=== PATIENT | female | born 1955 | race Caucasian/White ===

== ENCOUNTER → 2017-05-09 11:13 | Outpatient (CLI) | payer OTHER, SELFPAY ==
[2017-05-09 11:16] LABS: Bacteria 0 SEEN /hpf (None Seen); Mucous, Urine 0 SEEN /hpf (<or=2+); Red Blood Cells-Urine 0 SEEN /hpf (0-5); White Blood Cells 0 SEEN /hpf (0-5)
[2017-05-09 11:27] LABS: Color, Urine Yellow (Yellow); Glucose, Dipstick Normal (Normal); Ketone-Dipstick Negative (Negative); Leukocyte Esterase-Dipstick Negative /ul (Negative); Nitrite-Dipstick Negative (Negative); Occult Blood-Urine Negative /ul (Negative); Protein-Dipstick Negative (Negative); Specific Gravity, Urine 1.015 (1.002-1.030); Urine Bilirubin Dipstick Negative (Negative); Urine Clarity Clear (Clear); Urine Urobilinogen Normal (Normal)
[2017-05-09 11:35] LABS: Squamous Epithelial Cells - UA 0-5 SEEN /hpf (5-10)
== END ==
PROVIDERS: Family Provider Nurse Practitioner Family; PCP Nurse Practitioner Family; Visit Provider Nurse Practitioner Family
DX: R30.0 Dysuria (principal)
CPT/HCPCS: 81001; 87086

== ENCOUNTER 2017-09-20 16:49 | Emergency (ER) | payer OTHER, SELFPAY ==
[2017-09-20 16:50] VITALS: BP 156/83; PULSE 76; RESP 20; TEMP 36.8; O2SAT 96; BMI 22.4
--- NOTE | 2017-09-20 17:06 | ED.DCSUM_ITS ---
- ER Visit Summary Date of Service: 09/20/17 Chief Complaint: Chest pain History of Present Illness: The patient is a 62 F who presents with chest pain that began today. Patient states the pain began a few hours ago. Patient states the pain has gradually gotten worse. Patient describes the pain is tightness and stabbing. Patient states the pain is over the entire chest. Patient states her stabbing pain is over the left scapular area. Patient denies any nausea or vomiting. Patient admits to some diaphoresis and dyspnea. Patient also admits to some acid reflux symptoms. Patient denies any cough or fever. Patient denies any palpitations. Patient denies any lightheadedness or dizziness. Patient has family history of a parent with coronary artery disease. Patient has no other cardiac risk factors. Patient is PERC negative. Physical Examination: Vital signs are stable. Patient is afebrile. Patient is in no acute distress. Oral mucosa is pink moist. Neck is supple. There is no JVD noted. Heart was regular rate and rhythm. Lungs are clear and equal bilateral. There is good respiratory effort noted. Abdomen is soft nontender. Cranial nerves II through XII are intact. There is no focal motor or sensory deficits noted. The remaining physical exam is within normal limits. Test Results: EKG showed normal sinus rhythm with a rate of 71. There are occasional PACs noted. There are no acute ST or T-wave changes. There are no prior EKGs available for comparison. Portable chest x-ray does not show any acute cardiopulmonary process. CBC and basic metabolic profile were within normal limits. Troponin was normal. Emergency Department Course and Treatment: Patient felt better on reevaluation. Patient was given aspirin here. Patient has a SARMAD score of 1 and a HEART score of 3. Patient is low risk for acute coronary event. Patient was instructed to follow-up with her primary care physician in 5-7 days. Patient understood and was agreeable with the plan. All questions were answered. Disposition: Discharged home Impression: Chest pain This note was generated with [employer] dictation software. It may contain incorrect words, spelling, and punctuation that were not noted in review of the chart prior to signing ED Disposition - Plan for ED Patient: Disposition: Home or Assisted Living Chief Complaint: Chest Pain Diagnosis: Chest pain of unknown etiology Instructions: ED Chest Pain Atypical Unkn Cause Referrals: Vitaly Pickard NP-C [Nurse Practitioner] -
[2017-09-20 17:33] VITALS: O2SAT 96
[2017-09-20] MEDS: Aspirin 81 MG TAB.CHEW 324 MG PO (17:34)
[2017-09-20 17:37] LABS: Anion Gap 5 (5-15); BUN 17 mg/dL (7-18); BUN/Creat Ratio 20.1 RATIO (10-20); Calcium,Total 9.6 mg/dL (8.5-10.1); Chloride 107 mmol/L (98-107); Creatinine, Serum 0.85 mg/dL (0.55-1.02); EST Glomerular Filtration Rate 72 mL/min (>60); Est Glom Filt Rate - Afr Amer 87 mL/min (>60); Estimated Creatinine Clearance 55.31 ml/min; Glucose 85 mg/dL (74-106); Sodium Level 140 mmol/L (136-145)
[2017-09-20 17:47] LABS: Absolute Lymphocyte Count 1.78 X10^3/ul (0.83-4.51); Absolute Neutrophil Count 5.1 X10^3/uL (2.0-7.7); Basophil# 0.01 X10^3/uL; Basophil% 0.1 % (0-1); Eosinophil# 0.07 X10^3/uL; Hematocrit 43.9 % (37-47); Hemoglobin 14.7 g/dl (12.0-15.0); Lymphocyte # 1.78 X10^3/ul (4.0); Lymphocyte % 24.4 % (19-41); Mean Corp Hgb Conc 33.5 g/gl (32-36); Mean Corpuscular Hgb 30.9 pg (27.0-32.0); Mean Corpuscular Volume 92.4 fL (81-99); Mean Platelet Vol. 10.4 fl (6.2-12.0); Monocyte# 0.32 X10^3/uL; Monocyte% 4.4 % (0-10); Neutrophil # 5.12 X10^3/uL (2.7-7.7); Platelet Count 221 K/mm3 (150-450); RBC Distribution Width CV 13.1 % (11.6-14.6); RBC Distribution Width SD 44.1 fl (35.1-43.9); Red Blood Count 4.75 M/mm3 (4.2-5.4); White Blood Count 7.3 K/mm3 (4.4-11.0)
[2017-09-20 17:52] LABS: POSITIVE COUNT NO; POSITIVE DIFFERENTIAL NO; POSITIVE MORPHOLOGY NO
== END 2017-09-20 19:00 | disposition home or self-care (01) ==
PROVIDERS: Emergency Provider Emergency Medicine; Family Provider Internal Medicine; PCP Internal Medicine
DX: R07.9 Chest pain, unspecified (principal); I49.1 Atrial premature depolarization; R06.00 Dyspnea, unspecified; K21.9 Gastro-esophageal reflux disease without esophagitis; G62.9 Polyneuropathy, unspecified; M19.90 Unspecified osteoarthritis, unspecified site; Z87.19 Personal history of other diseases of the digestive system; Z90.49 Acquired absence of other specified parts of digestive tract
CPT/HCPCS: 71045; 80048; 84484; 85025; 93005; 99283; A4216

== ENCOUNTER → 2017-11-17 07:55 | Outpatient (CLI) | payer OTHER, SELFPAY ==
--- NOTE | 2017-11-17 08:05 | BI_ITS ---
MAMMOGRAPHY - BILATERAL SCREENING REASON FOR EXAM: Female, 62 years old. Routine annual screening examination. PERTINENT HISTORY: Non-contributory. TECHNIQUE: Digital bilateral breast janelle (3D mammographic acquisition) in the CC and MLO projections. 2-D mediolateral oblique (MLO) and craniocaudad (CC) views of both breasts were obtained. CAD: Full Field Digital Mammography with Computer Added Detection was performed. COMPARISON: Comparison is made with prior examination dated May 18, 2016. FINDINGS: Breast Composition: The breasts are heterogeneously dense, which may obscure small masses. There are no dominant masses or suspicious calcifications. No other significant abnormalities are identified. There has been no significant change since the prior study. BI/SCREENING MAMM (CAD), BILAT IMPRESSION: Stable bilateral screening mammogram. Yearly follow-up mammogram recommended. (A) ASSESSMENT CATEGORY: BIRADS Category 1: Negative. A letter regarding these results will be sent to the patient by the facility within 30 days. Approximately 10% of breast cancers are not detected by mammography. A normal mammogram should not delay biopsy of a clinically suspicious abnormality. [id number] Electronically Signed: Dwight Purvis MD at 13:17 EDT Tel [phone], Service support ,
[2017-11-17 09:19] LABS: Cholesterol 200 mg/dL (200); High Density Lipoprotein 101 mg/dL; Triglycerides 70 mg/dL; Very Low Density Lipoprotein 14 mg/dL (5-40)
== END ==
PROVIDERS: Family Provider Internal Medicine; PCP Internal Medicine; Referring Provider Obstetrics & Gynecology; Visit Provider Obstetrics & Gynecology
DX: Z00.00 Encounter for general adult medical examination without abnormal findings (principal); Z12.31 Encounter for screening mammogram for malignant neoplasm of breast
CPT/HCPCS: 36415; 77063; 77067; 80061

== ENCOUNTER → 2018-03-27 07:30 | Outpatient (CLI) | payer OTHER, SELFPAY ==
[2018-03-20 10:39] VITALS: BMI 21.9
--- NOTE | 2018-03-27 07:34 | US_ITS ---
STUDY: ULTRASOUND OF THE FEMALE PELVIS - COMPLETE REASON FOR EXAM: Female, 62 years old. Left lower quadrant pain. The patient is postmenopausal. LMP: Postmenopausal. TECHNIQUE: Transabdominal and Transvaginal TECHNICAL QUALITY: Adequate. COMPARISON: None. FINDINGS: The uterus is retroverted and is in a midline position. The uterus measures 5.3 cm x 5.5 cm x 3.5 cm. Normal uterine cervix. The endometrium measures 1.1 mm in thickness, and is hyperechoic. There is no demonstrated endometrial mass. There is no demonstrated myometrial mass. I.U.D. - The patient does not have an I.U.D. The right ovary is non-visualized. The left ovary is visualized. The left ovary measures 1.7 cm x 1.4 cm x 1.3 cm. There is no left ovarian cyst or ovarian mass. There is no visualized left adnexal mass or complex lesion. There is normal arterial and normal venous vascularity. There is a trace amount of fluid in the cul-de-sac. The pre void volume of the bladder was 282 mL. Polycystic ovary disease: No. US/Transvaginal Non- IMPRESSION: Normal female pelvis. Electronically Signed: Dwight Purvis MD at 10:49 EST , Service support ,
--- NOTE | 2018-03-27 07:34 | US_ITS ---
STUDY: ULTRASOUND OF THE FEMALE PELVIS - COMPLETE REASON FOR EXAM: Female, 62 years old. Left lower quadrant pain. The patient is postmenopausal. LMP: Postmenopausal. TECHNIQUE: Transabdominal and Transvaginal TECHNICAL QUALITY: Adequate. COMPARISON: None. FINDINGS: The uterus is retroverted and is in a midline position. The uterus measures 5.3 cm x 5.5 cm x 3.5 cm. Normal uterine cervix. The endometrium measures 1.1 mm in thickness, and is hyperechoic. There is no demonstrated endometrial mass. There is no demonstrated myometrial mass. I.U.D. - The patient does not have an I.U.D. The right ovary is non-visualized. The left ovary is visualized. The left ovary measures 1.7 cm x 1.4 cm x 1.3 cm. There is no left ovarian cyst or ovarian mass. There is no visualized left adnexal mass or complex lesion. There is normal arterial and normal venous vascularity. There is a trace amount of fluid in the cul-de-sac. The pre void volume of the bladder was 282 mL. Polycystic ovary disease: No. US/Pelvic (Non ) IMPRESSION: Normal female pelvis. Electronically Signed: Dwight Purvis MD at 10:49 EST , Service support ,
== END ==
PROVIDERS: Family Provider Internal Medicine; PCP Internal Medicine; Referring Provider Nurse Practitioner Women's Health; Visit Provider Nurse Practitioner Women's Health
DX: R10.2 Pelvic and perineal pain (principal)
CPT/HCPCS: 76830; 76856

== ENCOUNTER → 2018-08-01 13:26 | Outpatient (CLI) | payer MEDICARE, BC, SELFPAY ==
[2018-08-01 11:14] VITALS: BMI 22.4
[2018-08-24 11:57] LABS: HPV APTIMA, High Risk Negative (Negative)
== END ==
PROVIDERS: Family Provider Internal Medicine; PCP Internal Medicine; Referring Provider Obstetrics & Gynecology; Visit Provider Obstetrics & Gynecology
DX: Z12.4 Encounter for screening for malignant neoplasm of cervix (principal)
CPT/HCPCS: 87624; 88175; G0145

== ENCOUNTER 2018-08-07 20:59 | Emergency (ER) | payer MEDICARE, BC, SELFPAY ==
[2018-08-01 11:14] VITALS: BMI 22.4
[2018-08-07 21:01] VITALS: BP 127/76; PULSE 62; RESP 18; TEMP 36.7; O2SAT 99; BMI 22.0
[2018-08-07 21:15] LABS: Bacteria 0 SEEN /hpf (None Seen); Mucous, Urine 0 SEEN /hpf (<or=2+); Red Blood Cells-Urine 0 SEEN /hpf (0-5); White Blood Cells 0 SEEN /hpf (0-5)
[2018-08-07 21:30] LABS: Color, Urine Straw (Yellow); Glucose, Dipstick Normal (Normal); Ketone-Dipstick Negative (Negative); Leukocyte Esterase-Dipstick Negative /ul (Negative); Nitrite-Dipstick Negative (Negative); Occult Blood-Urine Negative /ul (Negative); Protein-Dipstick Negative (Negative); Urine Bilirubin Dipstick Negative (Negative); Urine Clarity Clear (Clear); Urine Urobilinogen Normal (Normal)
[2018-08-07 21:35] LABS: Squamous Epithelial Cells - UA 0-5 SEEN /hpf (5-10)
[2018-08-07] MEDS: Ondansetron 4 MG/2 ML Vial IV (23:02)
[2018-08-07] MEDS: Morphine 4 MG/ML Syringe IV (23:02)
[2018-08-07 23:07] LABS: Absolute Lymphocyte Count 1.66 X10^3/ul (0.83-4.51); Absolute Neutrophil Count 2.4 X10^3/uL (2.0-7.7); Basophil# 0.01 X10^3/uL; Basophil% 0.2 % (0-1); Eosinophils% 2.2 % (0-5); Hematocrit 34.8 % (37-47); Hemoglobin 11.4 g/dl (12.0-15.0); Lymphocyte # 1.66 X10^3/ul (4.0); Lymphocyte % 37.1 % (19-41); Mean Corp Hgb Conc 32.8 g/gl (32-36); Mean Corpuscular Volume 91.6 fL (81-99); Mean Platelet Vol. 9.9 fl (6.2-12.0); Monocyte# 0.31 X10^3/uL; Monocyte% 6.9 % (0-10); Neutrophil % 53.6 % (47-70); Platelet Count 204 K/mm3 (150-450); RBC Distribution Width CV 13.1 % (11.6-14.6); RBC Distribution Width SD 43.5 fl (35.1-43.9); White Blood Count 4.5 K/mm3 (4.4-11.0)
[2018-08-07 23:08] LABS: POSITIVE COUNT NO; POSITIVE DIFFERENTIAL NO; POSITIVE MORPHOLOGY NO
[2018-08-07 23:19] LABS: ALB/GLOB Ratio 1.4 RATIO (0.9-2.4); AST(SGOT) 20 U/L (15-37); Alanine Aminotransfer ALT/SGPT 20 U/L (13-56); Albumin, Serum 3.8 g/dL (3.2-5.0); Alkaline Phosphatase 81 U/L (45-117); Anion Gap 5 (5-15); BUN 17 mg/dL (7-18); BUN/Creat Ratio 19.4 RATIO (10-20); Calcium,Total 9.1 mg/dL (8.5-10.1); Chloride 107 mmol/L (98-107); Creatinine, Serum 0.88 mg/dL (0.55-1.02); EST Glomerular Filtration Rate 69 mL/min (>60); Est Glom Filt Rate - Afr Amer 83 mL/min (>60); Estimated Creatinine Clearance 55.04 ml/min; Globulin 2.7 g/dL (2.2-4.2); Glucose 82 mg/dL (74-106); Potassium 4.1 mmol/L (3.5-5.1); Protein, Total 6.5 g/dL (6.4-8.2); Sodium Level 140 mmol/L (136-145)
--- NOTE | 2018-08-07 23:29 | ED.VISSUMM ---
- ER Visit Summary Date of Service: 08/07/18 Chief Complaint: Abdominal pain History of Present Illness: The patient is a 63 F presenting with abdominal pain. She states that this started earlier this afternoon. She complains of right lower quadrant abdominal pain. She has had a decreased appetite today. She has nausea with no vomiting. She denies diarrhea or constipation. Denies urinary complaints. Denies fever. She has a history of peptic ulcers and previous cholecystectomy. Physical Examination: Vitals are stable. Patient is afebrile. Alert no acute distress. HEENT exam is unremarkable. Neck is supple. Lungs are clear and equal bilaterally. Heart is regular rate and rhythm. Abdomen is soft right lower quadrant tenderness with no rebound or guarding Extremities are unremarkable. Skin is warm and dry. Remainder of exam is unremarkable. Emergency Department Course and Treatment: Patient was given morphine, Zofran IV. CBC, CMP unremarkable. Urinalysis unremarkable. Patient continues to have pain and was given Dilaudid, Phenergan IV. CT abdomen pelvis is pending at this time and will be checked out to the oncoming physician. Disposition: pending Impression: Abdominal pain This note was generated with [employer] dictation software. It may contain incorrect words, spelling, and punctuation that were not noted in review of the chart prior to signing ED Disposition - Plan for ED Patient: Referrals: Enmanuel Joseph MD [Primary Care Provider] -
[2018-08-08] MEDS: proMETHazine 25 MG/ML Syringe 6.25 MG IV (00:26)
[2018-08-08] MEDS: HYDROmorphone 0.5 MG/0.5 ML SYRINGE IV (00:26)
[2018-08-08 01:42] VITALS: BP 106/61; PULSE 48; RESP 16; O2SAT 98
--- NOTE | 2018-08-08 02:03 | ED.DEP ---
ED Disposition - Plan for ED Patient: Disposition: Home or Assisted Living Instructions: Treating Constipation Referrals: Enmanuel Joseph MD [Primary Care Provider] - Washington Block MD [STAFF PHYSICIAN] -
[2018-08-08 02:23] VITALS: BP 110/47; PULSE 57; RESP 16; O2SAT 100
--- NOTE | 2018-08-08 22:44 | CT_ITS ---
STUDY: CT ABDOMEN AND PELVIS WITH CONTRAST REASON FOR EXAM: Female, 63 years old. Lower abdominal pain, nausea. History of peptic ulcer and cholecystectomy. RADIATION DOSAGE (If Supplied By Facility): CTDIvol = ( 17.99 ) mGy, DLP = ( 472.45 ) mGycm TECHNIQUE: Transaxial 3.75 mm images were obtained from the dome of the diaphragm to the symphysis pubis with oral contrast. 100ML IV/Oral Isovue 300 was administered. Sagittal and coronal images were reconstructed. Individualized dose optimization techniques were used for this CT. COMPARISON: CT abdomen pelvis 05/05/2014. FINDINGS: The visualized lung bases are unremarkable. The visualized portions of the heart are within normal limits. Stable few millimeter low attenuation in the right hepatic periphery. This is too small to characterize, however is unchanged. Previously seen low attenuation in the hepatic dome has resolved.. Absent gallbladder and normal extrahepatic biliary system patient status postcholecystectomy.. Normal spleen. Normal pancreas. Normal bilateral adrenal glands. Normal right kidney. Stable subcentimeter low-attenuation left inferior renal pole likely small cyst or other benign entity. Normal visualized stomach. Normal small intestine. Large amount of retained fecal material with otherwise normal colon. The appendix is visualized and appears normal. Image [id number] series 2. There is atherosclerotic calcification of the abdominal aorta and pelvic arteries, without a demonstrated aneurysm. Normal inferior vena cava. Normal retroperitoneum. 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 Normal urinary bladder. The uterus is age appropriate. Normal abdominal wall. There are stable degenerative changes of the visualized lumbar spine most pronounced L2-3, lumbar facet joints, mild degenerative changes of the bilateral hip and sacroiliac joints, CT/Abdomen/Pelvis WITH Contrast IMPRESSION: Stable subcentimeter low-attenuation right hepatic lobe and left inferior renal pole since 2014 felt to be benign entity such as cysts or others. There is no appendicitis, colitis, diverticulitis, ascites, abscess, collection, perforation or obstruction. There is no obstructive uropathy, obstructive renal or ureteral calculi. Abundant amount of retained fecal material. Insufficient left ovarian vein with pelvic varices, arteriosclerosis, degenerative changes felt to be nonacute findings. Electronically Signed: Ani Chávez MD at 1:48 EDT , Service support ,
== END 2018-08-08 02:27 | disposition home or self-care (01) ==
PROVIDERS: Emergency Medicine; Emergency Provider Emergency Medicine; Family Provider Internal Medicine; PCP Internal Medicine
DX: K59.00 Constipation, unspecified (principal); R10.31 Right lower quadrant pain; Z90.49 Acquired absence of other specified parts of digestive tract
CPT/HCPCS: 74177; 80053; 81001; 85025; 96374; 96375; 99283; Q9967; A4216; J2405

== ENCOUNTER → 2018-11-19 09:50 | Outpatient (CLI) | payer MEDICARE, BC, SELFPAY ==
[2018-03-20 11:25] VITALS: BMI 22.4
--- NOTE | 2018-11-19 09:52 | BI_ITS ---
MAMMOGRAPHY - BILATERAL SCREENING REASON FOR EXAM: Female, 63 years old. Routine annual screening examination. PERTINENT HISTORY: Non-contributory. TECHNIQUE: Digital bilateral breast darcy (3D mammographic acquisition) in the CC and MLO projections. 2-D mediolateral oblique (MLO) and craniocaudad (CC) views of both breasts were obtained. CAD: Full Field Digital Mammography with Computer Added Detection was performed. COMPARISON: Comparison is made with prior examination dated November 17, 2017. FINDINGS: Breast Composition: The breasts are heterogeneously dense, which may obscure small masses. There are no dominant masses or suspicious calcifications. No other significant abnormalities are identified. There has been no significant change since the prior study. BI/SCREEN MAMM (CAD) W/DARCY BILAT IMPRESSION: Stable bilateral screening mammogram. Yearly follow-up mammogram recommended. (A) ASSESSMENT CATEGORY: BIRADS Category 1: Negative. A letter regarding these results will be sent to the patient by the facility within 30 days. Approximately 10% of breast cancers are not detected by mammography. A normal mammogram should not delay biopsy of a clinically suspicious abnormality. [id number] Electronically Signed: Dwight Purvis, at 11:09 EDT , Service support ,
== END ==
PROVIDERS: Family Provider Internal Medicine; PCP Internal Medicine; Referring Provider Nurse Practitioner Women's Health; Visit Provider Nurse Practitioner Women's Health
DX: Z12.31 Encounter for screening mammogram for malignant neoplasm of breast (principal)
CPT/HCPCS: 77063; 77067

== ENCOUNTER → 2019-03-15 | Outpatient (CLI) | payer MEDICARE, BC, SELFPAY ==
[2019-03-15 14:38] VITALS: BMI 22.0
== END | disposition home or self-care (01) ==
LOC: LABSPEC 16:43
PROVIDERS: PCP Internal Medicine; Referring Provider Obstetrics & Gynecology; Visit Provider Obstetrics & Gynecology
DX: N89.8 Other specified noninflammatory disorders of vagina (principal)
CPT/HCPCS: 87070; 87205

== ENCOUNTER → 2019-11-21 10:26 | Outpatient (CLI) | payer MEDICARE, BC, SELFPAY ==
[2019-08-02 14:59] VITALS: BMI 22.0
--- NOTE | 2019-11-21 10:27 | BI_ITS ---
MAMMOGRAPHY - BILATERAL SCREENING REASON FOR EXAM: Female, 64 years old. Routine annual screening examination. PERTINENT HISTORY: Non-contributory. TECHNIQUE: Digital bilateral breast darcy (3D mammographic acquisition) in the CC and MLO projections. 2-D mediolateral oblique (MLO) and craniocaudad (CC) views of both breasts were obtained. CAD: Full Field Digital Mammography with Computer Added Detection was performed. COMPARISON: Comparison is made with prior study dated 11/19/2018 and 11/17/2017. FINDINGS: Breast Composition: The breasts are heterogeneously dense, which may obscure small masses. There are no dominant masses or suspicious calcifications. No other significant abnormalities are identified. There has been no significant change since the prior study. BI/SCREEN MAMM (CAD) W/DARCY BILAT IMPRESSION: Stable bilateral screening mammogram. Yearly follow-up mammogram recommended. (A) ASSESSMENT CATEGORY: BIRADS Category 1: Negative. A letter regarding these results will be sent to the patient by the facility within 30 days. Approximately 10% of breast cancers are not detected by mammography. A normal mammogram should not delay biopsy of a clinically suspicious abnormality. [id number] Electronically Signed: Dwight Purvis, at 12:39 EDT , Service support ,
--- NOTE | 2019-11-21 10:30 | BD_ITS ---
STUDY: DUAL ENERGY X-RAY ABSORPTIOMETRY / DXA REASON FOR EXAM: Female, 64 years old. Age of sonia 51. Pat is 127.7# and 63 and quot; a loss of 1 and quot; per pat. Currently is on a Hormone patch. Takes 500mg of calcium. Does a little exercising. TECHNIQUE: Bone Mineral Density (BMD) measurements of lumbar spine and bilateral hips were obtained. COMPARISON: None. FINDINGS: Lumbar Spine (L1-L4): g/cm2 (1.019) / T-score (-1.3) / Z-score (0.3) Findings are suggestive of osteopenia with a low fracture risk. Left Femur Total: g/cm2 (0.748) / T-score (-2.1) / Z-score (-0.8) Left Femoral Neck: g/cm2 (0.766) / T-score (-2.0) / Z-score (-0.4) Right Femur Total: g/cm2 (0.785) / T-score (-1.8) / Z-score (-0.5) Right Femoral Neck: g/cm2 (0.875) / T-score (-1.2) / Z-score (0.3) BD/Dexa Bone Density Study IMPRESSION: The patient is considered osteopenic as outlined below according to World Bert Organization (WHO) criteria with a moderate fracture risk. Reference Information: The T-score is the number of standard deviations above or below the standard which is normal for young adults at their peak bone mineral density. The World Health Organization (WHO) interprets the T-scores as follows: Above -1 Normal bone density Between -1 and -2.5 Osteopenia Equal to / or below -2.5 Osteoporosis As a practical clinical guideline, osteopenia may be graded as follows: Mild -1 through -1.5 Moderate -1.6 through -2.0 Severe -2.1 through -2.4 The Z-score is the number of standard deviations above or below age-matched controls. A Z-score of less than -1.5 would be considered abnormal. References: 1. NIH Osteoporosis and Related Bone Diseases www osteo.org 2. International Society for Clinical Densitometry www iscd.org 3. National Osteoporosis Foundation www nof.org Electronically Signed: Dwight Purvis, at 11:09 EDT , Service support ,
== END ==
PROVIDERS: PCP Internal Medicine; Referring Provider Obstetrics & Gynecology; Visit Provider Obstetrics & Gynecology
DX: E28.39 Other primary ovarian failure (principal); Z12.31 Encounter for screening mammogram for malignant neoplasm of breast
CPT/HCPCS: 77063; 77067; 77080

== ENCOUNTER → 2020-08-03 08:53 | Outpatient (CLI) | payer MEDICARE, BC, SELFPAY ==
[2020-08-03 08:29] VITALS: BMI 22.0
[2020-08-03 10:03] LABS: ALB/GLOB Ratio 1.3 RATIO (0.9-2.4); AST(SGOT) 24 U/L (15-37); Alanine Aminotransfer ALT/SGPT 19 U/L (13-56); Albumin, Serum 3.9 g/dL (3.2-5.0); Alkaline Phosphatase 88 U/L (45-117); Anion Gap 6 (5-15); BUN 20 mg/dL (7-18); BUN/Creat Ratio 24.9 RATIO (10-20); Calcium,Total 9.1 mg/dL (8.5-10.1); Chloride 107 mmol/L (98-107); Cholesterol 222 mg/dL (200); EST Glomerular Filtration Rate 76 mL/min (>60); Est Glom Filt Rate - Afr Amer 91 mL/min (>60); Globulin 3.1 g/dL (2.2-4.2); Glucose 80 mg/dL (74-106); High Density Lipoprotein 95 mg/dL; Potassium 4.2 mmol/L (3.5-5.1); Sodium Level 141 mmol/L (136-145); Thyroid Stim Hormone (TSH) 1.67 uIU/mL (0.358-3.74); Triglycerides 81 mg/dL; Very Low Density Lipoprotein 16 mg/dL (5-40)
[2020-08-03 11:36] LABS: Vitamin D,25 Hydroxy 24.8 ng/mL
[2020-08-03 17:13] LABS: Xtra Tube EP Lab EXTRA TUBE
== END ==
PROVIDERS: PCP Internal Medicine; Referring Provider Obstetrics & Gynecology; Visit Provider Obstetrics & Gynecology
DX: N95.1 Menopausal and female climacteric states (principal); Z13.29 Encounter for screening for other suspected endocrine disorder; Z13.220 Encounter for screening for lipoid disorders
CPT/HCPCS: 36415; 80053; 80061; 82306; 84443

== ENCOUNTER → 2020-11-23 08:36 | Outpatient (CLI) | payer MEDICARE, BC, SELFPAY ==
[2019-08-02 14:59] VITALS: BMI 22.0
--- NOTE | 2020-11-23 08:38 | BI_ITS ---
MAMMOGRAPHY - BILATERAL SCREENING REASON FOR EXAM: Female, 65 years old. Routine annual screening examination. PERTINENT HISTORY: Non-contributory. TECHNIQUE: Digital bilateral breast darcy (3D mammographic acquisition) in the CC and MLO projections. 2-D mediolateral oblique (MLO) and craniocaudad (CC) views of both breasts were obtained. CAD: Full Field Digital Mammography with Computer Added Detection was performed. COMPARISON: Comparison is made with prior study 11/21/2019 and 11/19/2018. FINDINGS: Breast Composition: The breasts are heterogeneously dense, which may obscure small masses. There are no dominant masses or suspicious calcifications. No other significant abnormalities are identified. There has been no significant change since the prior study. BI/SCRN MAMM (CAD)W/DARCY BILAT IMPRESSION: Stable bilateral screening mammogram. Yearly follow-up mammogram recommended. (A) ASSESSMENT CATEGORY: BIRADS Category 1: Negative. A letter regarding these results will be sent to the patient by the facility within 30 days. Approximately 10% of breast cancers are not detected by mammography. A normal mammogram should not delay biopsy of a clinically suspicious abnormality. [id number] Electronically Signed: Dwight Purvis MD at 9:24 EDT , Service support ,
== END ==
PROVIDERS: PCP Internal Medicine; Referring Provider Obstetrics & Gynecology; Visit Provider Obstetrics & Gynecology
DX: Z12.31 Encounter for screening mammogram for malignant neoplasm of breast (principal)
CPT/HCPCS: 77063; 77067

== ENCOUNTER → 2020-12-08 | Outpatient (CLI) | payer MEDICARE, BC, SELFPAY | END | disposition home or self-care (01) | LOC: LABSPEC 12:16 | PROVIDERS: PCP Internal Medicine; Referring Provider Nurse Practitioner Women's Health; Visit Provider Nurse Practitioner Women's Health | DX: N76.0 Acute vaginitis (principal) | CPT/HCPCS: 87070; 87077; 87205 ==

== ENCOUNTER 2021-08-08 17:43 | Emergency (ER) | payer MEDICARE, BC, SELFPAY ==
[2021-08-08 17:44] VITALS: PULSE 83; RESP 16; TEMP 36.4; O2SAT 100; BMI 22.4
--- NOTE | 2021-08-08 18:08 | EKG12_ITS ---
Test Reason : SOB Blood Pressure : / mmHG Vent. Rate : 083 BPM Atrial Rate : 090 BPM P-R Int : 000 ms QRS Dur : 060 ms QT Int : 400 ms P-R-T Axes : 000 003 066 degrees QTc Int : 470 ms Poor data quality, interpretation may be adversely affected Atrial fibrillation Septal infarct , age undetermined, cannot be excluded Abnormal ECG Confirmed by ZACKARY MONTERROSO, JEANNINE ([id number]), offline editor [place] ([id number]) on 08/10/2021 9:51:52 AM Referred By: SAMEER Confirmed By:JEANNINE RAYMUNDO MD
[2021-08-08] MEDS: proMETHazine 25 MG/ML Syringe 12.5 MG IM (18:11)
[2021-08-08] MEDS: 0.9% Normal Saline 1,000 ML 1000 ML IV (18:11)
--- NOTE | 2021-08-08 18:12 | EDS_ITS ---
HPI History of Present Illness Chief Complaint: ETOH Intox Informant: patient and friend Narrative Narrative: History is severely limited. Patient states help me over and over again. She will answer that she has no medical problems. But I cannot get any details on why she needs help. I cannot get her to answer if she is having pain or trouble breathing. I cannot get her to give any specific answer. She evidently went out tubing on the water today with friends. Friends are here. They states she was normal this morning. She has not eaten all day. She has been out in the sun. She has had a least a couple glasses of wine but they are not sure how much. She evidently fell asleep on the tube. She has vomited. She is stating help me. They do not know what is wrong with the patient. They could not get any information out of her either. We are not able to get any useful review of systems other than as above. I did scan over the online chart and we will try to look at more. There is a history of anxiety episodes. There is history of what sounds like recurrent of pain of uncertain etiology. There is a note about prior vomiting with syncope. But she has not had visits in quite some time. [facility] Medical History (Updated 08/08/21 @ 19:[address] Keon Yanez MD) Anxiety Arthritis Neuropathy Home Medications calcium citrate 315 mg calcium-vitamin D3 6.25 mcg (250 unit) tablet (Citracal + Vitamin D Maximum) 1 tab PO DAILY 08/03/20 [History Last Taken Unknown] estradiol 0.045 mg-levonorgestrel 0.015 mg/24hr weekly transderm patch 1 patch transdermal QWEEK #12 ea 08/03/20 [Rx Last Taken Unknown] Allergy/AdvReac Type Severity Reaction Status Date / Time codeine AdvReac Nausea Verified 08/08/21 17:46 Family History Father Heart disease Hypertension Hyperlipemia Arthritis Mother Hypertension Thyroid disorder Dementia Brother Alcoholism Grandmother Colon cancer Surgical History History of cholecystectomy History of tonsillectomy Social History Smoking Status: Never smoker alcohol intake: current alcohol intake frequency: holidays/special occasions only Alcohol type: wine details: social substance use type: does not use caffeine: Yes what type of physical activity do you participate in: walking and running frequency: 3-4 times per week seatbelt use: always do you feel safe at home: Yes additional social history: - Remax ROS ROS ED ROS Narrative Unable to obtain any significant review of systems. Review of Systems ROS Unobtainable: due to mental status Gastrointestinal Gastrointestinal: Reports vomiting EXAM Physical Exam Const Vital Signs: 08/08/21 17:44 08/08/21 18:35 08/08/21 19:52 Temperature 97.5 F L Temperature Source Temporal Pulse Rate 83 77 68 Respiratory Rate 16 16 13 Blood Pressure 79/62 L 115/83 H Blood Pressure Mean 67 93 Blood Pressure Source Monitor Pulse Ox 100 99 Oxygen Delivery Method Room Air 08/08/21 21:49 08/08/21 23:06 Temperature Temperature Source Pulse Rate 102 H 69 Respiratory Rate 15 17 Blood Pressure 133/68 H 115/79 Blood Pressure Mean 89 91 Blood Pressure Source Pulse Ox 98 97 Oxygen Delivery Method Room Air Room Air Positive well nourished and well developed Constitutional Narrative: Patient is quiet and resting when I walk in the room. Her friends asked her to explain what is wrong to me. She then opens her eyes and states help me over and over. I try to ask her specific questions. She does answer that she has no medical problems and is on no regular meds. But she cannot tell me where she is. I cannot get any specific response about pain shortness of breath etc. General Appearance ED: well developed; Negative for pallor HEENT Reports moist mucous membranes Eyes PERRL and EOMs intact bilaterally Eyes Narrative: I open the patient's eyes. She has pupils about 2-1/2 to 3 mm. They do appear to be equal and reactive. No notable photophobia. Neck supple Neck Narrative: No meningismus. Chest Wall inspection of chest normal Resp normal respiratory effort and clear to auscultation bilaterally Resp Narrative: Lungs are clear. She has vomited but I hear no coarse breath sounds. Her saturations are 99% on room air showing no hypoxia. Cardio regular rate and regular rhythm GI normal to inspection, nondistended, normoactive bowel sounds, non-tender and non-distended GI Narrative: There is signs of nonbloody emesis on her clothing. But abdomen is overall benign. I feel no mass. I feel no pulsatile mass. I hear no bruit. No tenderness at all. Back/Spine no CVA tenderness Extremity normal to inspection Extremity Narrative: No contusions. No pallor. No mottling. She has great distal pulses in all 4 extremities that are equal. Neuro Neuro Narrative: She is awake alert to person. I cannot get her to answer other questions r egarding orientation. Sensorium / Orientation: alert Psych Psych Narrative: Bit anxious and agitated when awoken. Attitude: agitated Mood & Affect: anxious Skin no rashes or lesions noted Skin Narrative: Patient does have some vomitus on her. No blood. General Skin Exam: Negative for jaundice or pallor MDM MDM MDM Narrative Medical decision making narrative: When I am initially in the room, the patient starts to vomit. Her heart got bradycardic and she actually went asystole for a brief time. She was rolled on her side. Right before we started CPR her pulse came back. She went to 90 and then briefly up to about 130. She went back to a heart rate of 90. It did appear to be sinus. She started vomiting again and she started to get bradycardic but it is come back. Each time she vomits she seems to get significant bradycardia. We will give her some Phenergan. I would like to avoid Zofran for potential QT prolongation. We will pursue blood work. We will check alcohol but is not clear that this is the cause of everything. She may have a component of dehydration and heatstroke. I get no indication of vascular emergency such as poor pulses mottling. With great peripheral including radial pulses I think she has good arterial pressure. No pulsatile mass. History consistent with vascular problems. I cannot get any indication of pain from her. We may need to add further studies depending on her progress. Our evaluation is severely limited due to the lack of history at this time. 18:25 patient was able to tell nursing staff where her daughter was and how to contact her. They were able to contact her. Evidently this patient has a history of passing out when she vomits. My understanding is the daughter is coming in. 18:40 patient evidently is having some more nausea and starting to vomit and CAT scan. Since we have an EKG with a QTC of 470 we will try Zofran now as Phenergan has not been effective. 19: 20 I talked with the patient and her daughter. Her daughter remembers episodes of mom passing out with vomiting back to tati high. This is been a recurrent issue she said. The patient is now awake and alert. She states she does not feel perfect but she feels markedly better now. She just felt terrible before. She denies any pain or trouble breathing. She is awake alert appropriate oriented x3 now. She is a completely different person than I met originally. Her heart rate is about 75 with a normal sinus rhythm very consistent heart rate and her blood pressure is normal. She does not appear to be in atrial fibrillation at this time. Her CBC so far shows no marked abn ormalities. Alcohol was a bit elevated at 139. We are pending further work-up. As long as the patient continues to do well and has no marked abnormalities we may still be able to get her home. The history is most consistent with a combination of alcohol, heat, no p.o. intake of food and her problems with vomiting and syncope. Patient's been rechecked several times here. She feels normal now. She states she has had this problem of nausea vomiting and syncope for years. It did get better when she had her gallbladder out several years ago. But she feels totally asymptomatic now. Her only medication that she takes is actually an estradiol patch. She takes no oral meds. She does take multivitamins vitamin D and calcium. She would prefer to follow-up with her primary physician. She has been in normal sinus rhythm with normal blood pressure and saturations for hours. We will get her up and walk around make sure she still feels well I did repeat her blood work electrolytes markedly normalized. Troponin is still normal. Lactate came down markedly. Is not completely normal but it is marked improvement. Patient is also asymptomatic. We discussed reasons to return. Patient had significant hyperventilation I think this caused marked changes in carbon dioxide lactate and her phosphorus. I think a lot of her symptoms are due to the combination of no food, decreased fluids other than alcohol, and heat. Lab Data Labs: Laboratory Results - last 24 hr 08/08/21 08/08/21 08/08/21 18:10 18:10 18:10 WBC 6.4 RBC 4.52 Hgb 14.5 Hct 42.1 MCV 93.1 MCH 32.1 H MCHC 34.4 RDW Std Deviation 42.1 RDW Coeff of Rekha 12.2 Plt Count 217 MPV 10.8 Immature Gran % (Auto) 0.300 Neut % (Auto) 70.9 H Lymph % (Auto) 22.6 Tyrrell % (Auto) 5.4 Eos % (Auto) 0.5 Baso % (Auto) 0.3 Absolute Neuts (auto) 4.6 Absolute Lymphs (auto) 1.45 Nucleated RBC % 0 Sodium 140 Potassium 3.5 Chloride 108 H Carbon Dioxide 17.0 L Anion Gap 15 BUN 22 H Creatinine 0.88 Estim Creat Clear Calc 55.06 Est GFR (MDRD) Af Amer 83 Est GFR (MDRD) Non-Af 68 BUN/Creatinine Ratio 25.1 H Glucose 131 H Lactic Acid Calcium 9.9 Phosphorus 0.7 L* Magnesium 1.9 Total Bilirubin 0.50 AST 28 ALT 24 Alkaline Phosphatase 79 Troponin I High Sens < 3 L Total Protein 7.1 Albumin 4.1 Globulin 3.0 Albumin/Globulin Ratio 1.4 Lipase 111 Urine Color Urine Clarity Urine pH Ur Specific [place] Urine Protein Urine Glucose (UA) Urine Ketones Urine Occult Blood Urine Nitrite Urine Bilirubin Urine Urobilinogen Ur Leukocyte Esterase Urine RBC Urine WBC Ur Squamous Epith Cells Urine Bacteria Hyaline Casts Urine Mucus Urine Opiates Screen Urine Methadone Screen Ur Barbiturates Screen Ur Phencyclidine Scrn Ur Amphetamines Screen MDMA (Ecstasy) Screen U Benzodiazepines Scrn Urine Cocaine Screen U Cannabinoids Screen Ur Drug Screen Comment Ethyl Alcohol 139.0 08/08/21 08/08/21 08/08/21 18:10 19:00 19:00 WBC RBC Hgb Hct MCV MCH MCHC RDW Std Deviation RDW Coeff of Rekha Plt Count MPV Immature Gran % (Auto) Neut % (Auto) Lymph % (Auto) Tyrrell % (Auto) Eos % (Auto) Baso % (Auto) Absolute Neuts (auto) Absolute Lymphs (auto) Nucleated RBC % Sodium Potassium Chloride Carbon Dioxide Anion Gap BUN Creatinine Estim Creat Clear Calc Est GFR (MDRD) Af Amer Est GFR (MDRD) Non-Af BUN/Creatinine Ratio Glucose Lactic Acid 6.4 H* Calcium Phosphorus Magnesium Total Bilirubin AST ALT Alkaline Phosphatase Troponin I High Sens Total Protein Albumin Globulin Albumin/Globulin Ratio Lipase Urine Color Yellow Urine Clarity Clear Urine pH 5.0 Ur Specific [place] 1.025 Urine Protein Negative Urine Glucose (UA) Normal Urine Ketones 50 H Urine Occult Blood Negative Urine Nitrite Negative Urine Bilirubin Negative Urine Urobilinogen Normal Ur Leukocyte Esterase 25 H Urine RBC 0 SEEN Urine WBC 0-5 SEEN Ur Squamous Epith Cells 0-5 SEEN Urine Bacteria 1+ Hyaline Casts 5-10 SEEN Urine Mucus 3+ Urine Opiates Screen NEGATIVE Urine Methadone Screen NEGATIVE Ur Barbiturates Screen NEGATIVE Ur Phencyclidine Scrn NEGATIVE Ur Amphetamines Screen NEGATIVE MDMA (Ecstasy) Screen NEGATIVE U Benzodiazepines Scrn NEGATIVE Urine Cocaine Screen NEGATIVE U Cannabinoids Screen NEGATIVE Ur Drug Screen Comment Ethyl Alcohol 08/08/21 08/08/21 21:30 23:03 WBC RBC Hgb Hct MCV MCH MCHC RDW Std Deviation RDW Coeff of Rekha Plt Count MPV Immature Gran % (Auto) Neut % (Auto) Lymph % (Auto) Tyrrell % (Auto) Eos % (Auto) Baso % (Auto) Absolute Neuts (auto) Absolute Lymphs (auto) Nucleated RBC % Sodium 141 Potassium 4.4 Chloride 109 H Carbon Dioxide 25.0 Anion Gap 7 BUN 18 Creatinine 0.69 Estim Creat Clear Calc 48.45 Est GFR (MDRD) Af Amer 108 Est GFR (MDRD) Non-Af 89 BUN/Creatinine Ratio 26.0 H Glucose 94 Lactic Acid 2.5 H* Calcium 8.8 Phosphorus 3.5 Magnesium 1.9 Total Bilirubin AST ALT Alkaline Phosphatase Troponin I High Sens 8 Total Protein Albumin Globulin Albumin/Globulin Ratio Lipase Urine Color Urine Clarity Urine pH Ur Specific [place] Urine Protein Urine Glucose (UA) Urine Ketones Urine Occult Blood Urine Nitrite Urine Bilirubin Urine Urobilinogen Ur Leukocyte Esterase Urine RBC Urine WBC Ur Squamous Epith Cells Urine Bacteria Hyaline Casts Urine Mucus Urine Opiates Screen Urine Methadone Screen Ur Barbiturates Screen Ur Phencyclidine Scrn Ur Amphetamines Screen MDMA (Ecstasy) Screen U Benzodiazepines Scrn Urine Cocaine Screen U Cannabinoids Screen Ur Drug Screen Comment Ethyl Alcohol Radiography Diagnostic Testing: Clinical Impression(s) from Imaging Studies Brain CT 08/08/21 18:45 IMPRESSION: No acute intracranial process. Electronically Signed: Jake Burleson MD at 19:34 EDT , Chest X-Ray 08/08/21 18:45 IMPRESSION: No active pulmonary disease. Electronically Signed: Jake Burleson MD at 19:37 EDT , EKG Initial EKG: Comments: EKG is done to evaluate dysrhythmia and read by me. Very difficult to interpret due to motion artifact. EKG shows difficult to assess rhythm but she may have background atrial fibrillation. Overall rate is controlled at 83 though. There is a lot of baseline variation but no definitive indication of ST elevation or depression. There are ST changes in some leads but they are not consistent throughout each beat in those leads. QRS duration i s normal. QTc is within normal at 470. The EKG has a lot of similarities to 20 September 2017 but today's EKG is very hard to interpret due to motion artifact. Discharge Plan Triage Chief Complaint: ETOH Intox ED Provider: Keon Yanez Dx/Rx/DC Orders Clinical Impression: Vasovagal syncope, Alcohol intoxication, Nausea & vomiting Instructions: Nausea Vomit Control, ED Fainting, Vagal Reaction Prescriptions: No Action calcium citrate-vitamin D3 [Citracal + D Maximum] 315 mg-6.25 mcg (250 unit) tablet 1 tab PO DAILY estradiol-levonorgestrel 0.045-0.015 mg/24 hr patch weekly 1 patch Transdermal QWEEK Qty: 12 4RF Primary Care Provider: Enmanuel Joseph Referrals: Enmanuel Joseph MD [Primary Care Provider] - 3-5 Days Disposition Disposition: Home, Self Care
[2021-08-08 18:35] VITALS: BP 79/62; PULSE 77; RESP 16; O2SAT 99
--- NOTE | 2021-08-08 18:45 | RAD_ITS ---
STUDY: X-RAY CHEST REASON FOR EXAM: Female, 66 years old. Cough TECHNIQUE: Single AP portable view of the chest. COMPARISON: 09/20/2017. FINDINGS: The lungs are clear and expanded. There is no demonstrated pleural abnormality. Normal size heart. Normal mediastinum and dominic. Normal visualized pulmonary arteries. Normal visualized aortic arch and descending thoracic aorta. Normal visualized thoracic spine. Normal visualized ribs, clavicles, and shoulders. There is no demonstrated abnormality of the visualized soft tissue structures of the upper abdomen. RAD/Chest 1 View (Portable) IMPRESSION: No active pulmonary disease. Electronically Signed: Jake Burleson MD at 19:37 EDT ,
--- NOTE | 2021-08-08 18:45 | CT_ITS ---
STUDY: CT BRAIN WITHOUT CONTRAST REASON FOR EXAM: Female, 66 years old. Confusion RADIATION DOSAGE (If Supplied By Facility): CTDIvol = ( 47.06 ) mGy, DLP = ( 943.26 ) mGycm TECHNIQUE: Transaxial CT imaging of the brain was performed without administration of intravenous contrast material. Individualized dose optimization techniques were used for this CT. COMPARISON: No relevant priors. FINDINGS: Normal soft tissue structures. Normal calvarium. Normal size ventricles and extra-axial spaces for the patient''s age. Normal white matter tracts of the cerebral hemispheres. Hypodense area in the inferior right basal ganglia probably due to prominent vascular space. Normal brainstem. Normal cerebellum. There is no intracranial hemorrhage. There are no findings of an acute ischemic infarction. Normal visualized paranasal sinuses. CT/Brain/Head without Contrast IMPRESSION: No acute intracranial process. Electronically Signed: Jake Burleson MD at 19:34 EDT ,
[2021-08-08] MEDS: Ondansetron 4 MG/2 ML Vial IV (18:48)
[2021-08-08 19:09] LABS: Absolute Lymphocyte Count 1.45 X10^3/uL (0.83-4.51); Absolute Neutrophil Count 4.6 X10^3/uL (2.0-7.7); Basophil# 0.02 X10^3/uL; Basophil% 0.3 % (0-1); Eosinophil# 0.03 X10^3/uL; Eosinophils% 0.5 % (0-5); Hematocrit 42.1 % (37-47); Hemoglobin 14.5 g/dL (12.0-15.0); Lymphocyte # 1.45 X10^3/ul (0.83-4.51); Lymphocyte % 22.6 % (19-41); Mean Corp Hgb Conc 34.4 g/dL (32-36); Mean Corpuscular Hgb 32.1 pg (27.0-32.0); Mean Corpuscular Volume 93.1 fL (81-99); Mean Platelet Vol. 10.8 fl (6.2-12.0); Monocyte# 0.35 X10^3/uL; Monocyte% 5.4 % (0-10); NRBC Flagged by Analyzer 0 % (0-5); Neutrophil # 4.56 X10^3/uL (2.7-7.7); Neutrophil % 70.9 % (47-70); Platelet Count 217 K/mm3 (150-450); RBC Distribution Width CV 12.2 % (11.6-14.6); RBC Distribution Width SD 42.1 fl (35.1-43.9); Red Blood Count 4.52 M/mm3 (4.2-5.4); White Blood Count 6.4 K/mm3 (4.4-11.0)
[2021-08-08 19:12] LABS: Red Blood Cells-Urine 0 SEEN /hpf (0-5)
[2021-08-08 19:17] LABS: Color, Urine Yellow (Yellow); Glucose, Dipstick Normal (Normal); Ketone-Dipstick 50 mg/dl (Negative); Leukocyte Esterase-Dipstick 25 /ul (Negative); Nitrite-Dipstick Negative (Negative); Occult Blood-Urine Negative /ul (Negative); Protein-Dipstick Negative (Negative); Specific Gravity, Urine 1.025 (1.002-1.030); Urine Bilirubin Dipstick Negative (Negative); Urine Clarity Clear (Clear); Urine Urobilinogen Normal (Normal)
[2021-08-08 19:43] LABS: Amphetamine Urine VISTA NEGATIVE (<1000 ng/mL); Barbiturate Urine VISTA NEGATIVE (< 200 ng/mL); Benzodiazepine Urine VISTA NEGATIVE (< 200 ng/mL); Cocaine Urine VISTA NEGATIVE (< 300 ng/mL); Ecstacy Urine VISTA NEGATIVE (< 500 ng/mL); Methadone Urine VISTA NEGATIVE (< 300 ng/mL); PCP Urine VISTA NEGATIVE (< 25 ng/mL); THC Urine VISTA NEGATIVE (< 50 ng/mL); Vista UDS pH Range 5
[2021-08-08 19:44] LABS: ALB/GLOB Ratio 1.4 RATIO (0.9-2.4); AST(SGOT) 28 U/L (15-37); Alanine Aminotransfer ALT/SGPT 24 U/L (13-56); Albumin, Serum 4.1 g/dL (3.2-5.0); Alkaline Phosphatase 79 U/L (45-117); Anion Gap 15 (5-15); BUN 22 mg/dL (7-18); BUN/Creat Ratio 25.1 RATIO (10-20); Calcium,Total 9.9 mg/dL (8.5-10.1); Chloride 108 mmol/L (98-107); Creatinine, Serum 0.88 mg/dL (0.55-1.02); EST Glomerular Filtration Rate 68 mL/min (>60); Est Glom Filt Rate - Afr Amer 83 mL/min (>60); Estimated Creatinine Clearance 55.06 ml/min; Glucose 131 mg/dL (74-106); Lipase 111 U/L (73-393); Magnesium 1.9 mg/dL (1.6-2.6); Phosphorus 0.7 mg/dL (2.5-4.9); Potassium 3.5 mmol/L (3.5-5.1); Protein, Total 7.1 g/dL (6.4-8.2); Sodium Level 140 mmol/L (136-145); Troponin-I HS < 3 pg/mL (3.0-54.0)
[2021-08-08 19:52] VITALS: BP 115/83; PULSE 68; RESP 13
[2021-08-08 19:54] LABS: Bacteria 1+ /hpf (None Seen); Mucous, Urine 3+ /hpf (<or=2+); Squamous Epithelial Cells - UA 0-5 SEEN /hpf (5-10); White Blood Cells 0-5 SEEN /hpf (0-5)
[2021-08-08 19:56] LABS: Hyaline Cast 5-10 SEEN /lpf (0-5)
[2021-08-08 20:07] LABS: Lactic Acid 6.4 mmol/L (0.4-1.9)
[2021-08-08] MEDS: 0.9% Normal Saline 1,000 ML 999 ML IV (20:56)
[2021-08-08 21:49] VITALS: BP 133/68; PULSE 102; RESP 15; O2SAT 98
[2021-08-08 22:06] LABS: Anion Gap 7 (5-15); BUN 18 mg/dL (7-18); Calcium,Total 8.8 mg/dL (8.5-10.1); Chloride 109 mmol/L (98-107); Creatinine, Serum 0.69 mg/dL (0.55-1.02); EST Glomerular Filtration Rate 89 mL/min (>60); Est Glom Filt Rate - Afr Amer 108 mL/min (>60); Estimated Creatinine Clearance 48.45 ml/min; Glucose 94 mg/dL (74-106); Magnesium 1.9 mg/dL (1.6-2.6); Phosphorus 3.5 mg/dL (2.5-4.9); Potassium 4.4 mmol/L (3.5-5.1); Sodium Level 141 mmol/L (136-145); Troponin-I HS 8 pg/mL (3.0-54.0)
[2021-08-08 23:04] LABS: Reflex Lactate? Y
[2021-08-08 23:06] VITALS: BP 115/79; PULSE 69; RESP 17; O2SAT 97
[2021-08-08 23:47] LABS: Lactic Acid 2.5 mmol/L (0.4-1.9)
[2021-08-09 00:14] VITALS: BP 127/77; PULSE 78; O2SAT 98
== END 2021-08-09 00:19 | disposition home or self-care (01) ==
PROVIDERS: Emergency Provider Emergency Medicine; PCP Internal Medicine; Visit Provider Emergency Medicine
DX: F10.129 Alcohol abuse with intoxication, unspecified (principal); Y90.6 Blood alcohol level of 120-199 mg/100 ml; R55 Syncope and collapse; R11.2 Nausea with vomiting, unspecified; R00.1 Bradycardia, unspecified
CPT/HCPCS: 70450; 71045; 80048; 80053; 80307; 81001; 82077; 83605; 83690; 83735; 84100; 84484; 85025; 93005; 96361; 96372; 96374; 99284; J7030; A4216

== ENCOUNTER → 2021-12-14 | Outpatient (CLI) | payer MEDICARE, BC, SELFPAY ==
--- NOTE | 2021-12-14 07:32 | BI_ITS ---
MAMMOGRAPHY - BILATERAL SCREENING REASON FOR EXAM: Female, 66 years old. Routine annual screening examination. PERTINENT HISTORY: Non-contributory. TECHNIQUE: Digital bilateral breast darcy (3D mammographic acquisition) in the CC and MLO projections. 2-D mediolateral oblique (MLO) and craniocaudad (CC) views of both breasts were obtained. CAD: Full Field Digital Mammography with Computer Added Detection was performed. COMPARISON: Comparison is made with prior study dated 11/23/2020 and 11/21/2019. FINDINGS: Breast Composition: The breasts are heterogeneously dense, which may obscure small masses. There are no dominant masses or suspicious calcifications. No other significant abnormalities are identified. There has been no significant change since the prior study. BI/SCRN MAMM (CAD)W/DARCY BILAT IMPRESSION: Stable bilateral screening mammogram. Yearly follow-up mammogram recommended. (A) ASSESSMENT CATEGORY: BIRADS Category 1: Negative. A letter regarding these results will be sent to the patient by the facility within 30 days. Approximately 10% of breast cancers are not detected by mammography. A normal mammogram should not delay biopsy of a clinically suspicious abnormality. [id number] Electronically Signed: Dwight Purvis MD at 8:40 EST ,
== END | disposition home or self-care (01) ==
LOC: OPBI 07:30
PROVIDERS: PCP Internal Medicine; Referring Provider Obstetrics & Gynecology; Visit Provider Obstetrics & Gynecology
DX: Z12.31 Encounter for screening mammogram for malignant neoplasm of breast (principal)
CPT/HCPCS: 77063; 77067

== ENCOUNTER → 2022-01-19 | Outpatient (CLI) | payer MEDICARE, BC, SELFPAY ==
--- NOTE | 2022-01-19 08:19 | BD_ITS ---
STUDY: DUAL ENERGY X-RAY ABSORPTIOMETRY / DXA REASON FOR EXAM: Female, 66 years old. Postmenopausal TECHNIQUE: Bone Mineral Density (BMD) measurements of lumbar spine and bilateral hips were obtained. COMPARISON: Comparison is made with prior study 11/21/2019. FINDINGS: Lumbar Spine (L1-L4): g/cm2 (0.845) / T-score (-1.8) / Z-score (0.2) Findings are suggestive of osteopenia with a moderate fracture risk. Left Femur Total: g/cm2 (0.717) / T-score (-1.8) / Z-score (-0.4) Left Femoral Neck: g/cm2 (0.606) / T-score (-2.2) / Z-score (-0.5) Right Femur Total: g/cm2 (0.771) / T-score (-1.4) / Z-score (0.0) Right Femoral Neck: g/cm2 (0.655) / T-score (-1.7) / Z-score (0.0) The T-Scores on the most recent prior examination were: Lumbar Spine (L1-L4): There has been worsening of bone density since the previous examination. Left Femur Total: which represents an improvement of 4%. Right Femur Total: which represents an improvement of 6.3%. BD/Dexa Bone Density Study IMPRESSION: The patient is considered osteopenic as outlined below according to World Bert Organization (WHO) criteria with a high fracture risk. There has been improvement of bone density since the previous examination. Reference Information: The T-score is the number of standard deviations above or below the standard which is normal for young adults at their peak bone mineral density. The World Health Organization (WHO) interprets the T-scores as follows: Above -1 Normal bone density Between -1 and -2.5 Osteopenia Equal to / or below -2.5 Osteoporosis As a practical clinical guideline, osteopenia may be graded as follows: Mild -1 through -1.5 Moderate -1.6 through -2.0 Severe -2.1 through -2.4 The Z-score is the number of standard deviations above or below age-matched controls. A Z-score of less than -1.5 would be considered abnormal. References: 1. NIH Osteoporosis and Related Bone Diseases www osteo.org 2. International Society for Clinical Densitometry www iscd.org 3. National Osteoporosis Foundation www nof.org Electronically Signed: Dwight Purvis MD at 10:11 EST ,
== END | disposition home or self-care (01) ==
LOC: OPBD 08:10
PROVIDERS: PCP Internal Medicine; Visit Provider Nurse Practitioner Women's Health
DX: Z78.0 Asymptomatic menopausal state (principal); N95.1 Menopausal and female climacteric states
CPT/HCPCS: 77080

== ENCOUNTER → 2023-01-17 | Outpatient (CLI) | payer MEDICARE, BC, SELFPAY ==
--- NOTE | 2023-01-17 07:24 | BI_ITS ---
MAMMOGRAPHY - BILATERAL SCREENING REASON FOR EXAM: Female, 67 years old. Routine annual screening examination. PERTINENT HISTORY: Non-contributory. TECHNIQUE: Digital bilateral breast darcy (3D mammographic acquisition) in the CC and MLO projections. 2-D mediolateral oblique (MLO) and craniocaudad (CC) views of both breasts were obtained. CAD: Full Field Digital Mammography with Computer Added Detection was performed. COMPARISON: Comparison is made with prior study dated December 14, 2021 and November 23, 2020. FINDINGS: Breast Composition: The breasts are heterogeneously dense, which may obscure small masses. There are no dominant masses or suspicious calcifications. No other significant abnormalities are identified. There has been no significant change since the prior study. BI/SCRN MAMM (CAD)W/DARCY BILAT IMPRESSION: Stable bilateral screening mammogram. Yearly follow-up mammogram recommended. (A) ASSESSMENT CATEGORY: BIRADS Category 1: Negative. A letter regarding these results will be sent to the patient by the facility within 30 days. Approximately 10% of breast cancers are not detected by mammography. A normal mammogram should not delay biopsy of a clinically suspicious abnormality. [id number] Electronically Signed: Dwight Purvis MD at 8:38 EST ,
== END | disposition home or self-care (01) ==
LOC: OPBI 07:22
PROVIDERS: PCP Internal Medicine; Referring Provider Nurse Practitioner Women's Health; Visit Provider Nurse Practitioner Women's Health
DX: Z12.31 Encounter for screening mammogram for malignant neoplasm of breast (principal)
CPT/HCPCS: 77063; 77067

== ENCOUNTER → 2024-01-26 | Outpatient (CLI) | payer MEDICARE, BC, SELFPAY ==
--- NOTE | 2024-01-26 08:06 | BI_ITS ---
MAMMOGRAPHY - BILATERAL SCREENING REASON FOR EXAM: Female, 68 years old. Routine annual screening examination. PERTINENT HISTORY: Non-contributory. TECHNIQUE: Digital bilateral breast darcy (3D mammographic acquisition) in the CC and MLO projections. 2-D mediolateral oblique (MLO) and craniocaudad (CC) views of both breasts were obtained. CAD: Full Field Digital Mammography with Computer Added Detection was performed. COMPARISON: Comparison is made with prior study dated January 17, 2023 and December 14, 2021. FINDINGS: Breast Composition: The breasts are heterogeneously dense, which may obscure small masses. There are no dominant masses or suspicious calcifications. No other significant abnormalities are identified. There has been no significant change since the prior study. BI/SCRN MAMM (CAD)W/DARCY BILAT IMPRESSION: Stable bilateral screening mammogram. Yearly follow-up mammogram recommended. (A) ASSESSMENT CATEGORY: BIRADS Category 1: Negative. A letter regarding these results will be sent to the patient by the facility within 30 days. Approximately 10% of breast cancers are not detected by mammography. A normal mammogram should not delay biopsy of a clinically suspicious abnormality. [id number] Electronically Signed: Dwight Purvis MD at 9:15 EST ,
== END | disposition home or self-care (01) ==
LOC: OPBI 08:06
PROVIDERS: PCP Internal Medicine; Referring Provider Nurse Practitioner Women's Health; Visit Provider Nurse Practitioner Women's Health
DX: Z12.31 Encounter for screening mammogram for malignant neoplasm of breast (principal)
CPT/HCPCS: 77063; 77067

== ENCOUNTER → 2024-04-09 | Outpatient (CLI) | payer MEDICARE, BC, SELFPAY ==
--- NOTE | 2024-04-09 07:34 | BD_ITS ---
PROCEDURE: DEXA BONE DENSITY STUDY REASON FOR EXAM: F, age 68 y/o . TECHNIQUE: DEXA scan of the lumbar spine and both hips. COMPARISON: 01/19/2022 FINDINGS: T-SCORES Lumbar spine: -2.1 (BMD -1.8 ); Previously: -1.8 Left hip: -2.1 (BMD 0.687 ); Previously: -1.8 Right hip: -1.5 (BMD 0.756 ); Previously: -1.4 Right hip FRAX* Results: 10 Year Probability of Fracture: Hip Fracture(1): 1.1% Major Osteoporotic Fracture(2): 9.0% Left hip FRAX* Results: 10 Year Probability of Fracture: Hip Fracture(1): 12% Major Osteoporotic Fracture(2): 2.8% *FRAX is a trademark of the [employer] [place] for Metabolic Bone Disease, World Health Organization (WHO) Collaborating [place]. 1-The 10-year probability of fracture may be lower than reported if the patient has received treatment. 2-Major Osteoporotic Fracture: Clinical Spine, Forearm, Hip or Shoulder. The T-scores are also available for review on the [facility] PACS or by accessing the [facility] electronic medical record. BD/Dexa Bone Density Study IMPRESSION: Osteopenia of the lumbar spine and bilateral hips. Reading Location: [facility]
== END | disposition home or self-care (01) ==
LOC: OPBD 07:26
PROVIDERS: PCP Internal Medicine; Referring Provider Internal Medicine; Visit Provider Internal Medicine
DX: M85.88 Other specified disorders of bone density and structure, other site (principal)
CPT/HCPCS: 77080

== ENCOUNTER 2024-11-17 20:03 | Emergency (ER) | payer MEDICARE, BC, SELFPAY ==
[2024-11-17 20:04] VITALS: BP 172/97; PULSE 70; RESP 18; TEMP 36.1; O2SAT 100; BMI 23.6
--- NOTE | 2024-11-17 21:52 | EDS_ITS ---
HPI History of Present Illness Chief Complaint: Dental Informant: patient Onset/Context/Timing Onset: Today Context: Gradual Onset Timing: Continuous Quality: Throbbing Location: Left lower incisor Worsened by: Biting, palpation Relieved by: - (Nothing) Associated Symptoms Assocated Symptom - Dental: jaw swelling, cold sensitivity and hot sensitivity; Negative for fever or face swelling Narrative Narrative: Patient presents with lower dental pain that began today. Patient states it has gotten progressively worse. Patient states it is over the left lower lateral incisor. Patient states her pain is throbbing. Patient states it is worse with biting and whenever she touches the area. Patient does admit to some swelling over her gum. Patient admits to some hot and cold sensitivity. Patient denies any fevers or chills. Patient denies any discharge or drainage. Patient denies any swelling into the sublingual space. Patient denies any difficulty breathing or difficulty swallowing. [facility] Medical History Anxiety Neuropathy Arthritis Home Medications ?Medication ?Instructions ?Recorded ?Last Taken ?Type calcium 315 mg (as 1 tab PO DAILY 08/03/20 Unkn own History citrate)-vitamin D3 6.25 mcg (250 unit) tablet (Citracal + Vitamin D Maximum) estradiol 0.01% (0.1 mg/gram) 1 appful vaginal DAILY # 42.5 grams 09/25/23 Unknown Rx vaginal cream (Estrace) amoxicillin 500 mg tablet 500 mg PO TID #30 tabs 11/17 Unknown Rx hydrocodone-acetaminophen 5-325mg 1 tab PO Q6H PRN PRN Pain 3 days 11/17/24 Unknown Rx 5mg-325mg #10 TABLETS Allergy/AdvReac Type Severity Reaction Status Date / Time codeine AdvReac Nausea Verified 11/17/24 20:04 Family History Father Heart disease Hypertension Hyperlipemia Arthritis Mother Hypertension Thyroid disorder Dementia Brother Alcoholism Grandmother Colon cancer Surgical History History of tonsillectomy History of cholecystectomy Social History housing: house Smoking Status: Never smoker alcohol intake: current alcohol intake frequency: holidays/special occasions only Alcohol type: wine details: social substance use type: does not use caffeine: Yes what type of physical activity do you participate in: walking and running frequency: 3-4 times per week seatbelt use: always do you feel safe at home: Yes additional social history: - Remax ROS ROS ED Constitutional Constitutional ED: Denies chills or fever(s) Eyes Eyes: Denies blurry vision or change in vision ENT ENT ED: Reports rhinorrhea; Denies sore throat Cardiovascular Cardiovascular: Denies chest pain or palpitations Respiratory/Chest Respiratory/Chest: Denies cough or dyspnea Gastrointestinal Gastrointestinal: Denies nausea or vomiting Genitourinary Genitourinary ED: Denies dysuria or hematuria Musculoskeletal Musculoskeletal: Denies back pain or neck pain Integumentary Denies abscess or rash Neurologic Neurologic: Denies headache(s) or weakness Allergic/Immunologic Allergic/Immunologic ED: Denies mouth swelling or urticaria EXAM Physical Exam Const Vital Signs: 11/17/24 20:04 11/17/24 22:48 Temperature 97 F L 97.3 F L Temperature Source Temporal Pulse Rate 70 70 Respiratory Rate 18 18 Blood Pressure 172/97 H 168/70 H Blood Pressure Mean 122 102 Pulse Ox 100 100 Oxygen Delivery Method Room Air Positive well nourished and well developed Constitutional Narrative: BMI is 23.6. General Appearance ED: well developed and NAD HEENT HEENT Narrative: There is tenderness and edema of the lower gingiva over the left lateral lower incisor. There is no fluctuance. There is no discharge or drainage noted. There is no sublingual edema. There is no evidence of Del's angina. There is no loosening of the tooth. Mouth ED: Yes oral and palatal mucosa normal Mouth: oral and palatal mucosa normal Teeth and Gingiva: gingiva abnormal Positive for gingival edema Throat: posterior oropharynx normal Neck supple and no JVD General: normal visual inspection; Negative for anterior neck swelling, tenderness or submandibular swelling Neuro oriented x3, CN's II-XII intact bilaterally, moves all extremities, no focal motor deficits and no sensory deficits noted Sensorium / Orientation: alert Motor Exam: strength 5/5 throughout Psych mental status grossly normal MDM MDM MDM Narrative Medical decision making narrative: Patient was advised that this is most likely infected dental carry or gingival abscess. There is no fluctuance. There is no indication for drainage. Patient was given a dose of amoxicillin here. Patient was given a prescription for amoxicillin. Patient was instructed to follow-up with her dentist in 5 to 7 days. Patient was instructed to return if worse in any way. Patient understood and was agreeable with the plan. All questions were answered. Discharge Plan Triage Chief Complaint: Dental ED Provider: Cornell Hogan Dx/Rx/DC Orders Clinical Impression: Infected dental caries, Elevated blood pressure reading Instructions: ED Dental Abscess Prescriptions: New amoxicillin 500 mg tablet 500 mg PO TID Qty: 30 0RF hydrocodone-acetaminophen 5-325 mg tablet 1 tab PO Q6H PRN PRN (Reason: Pain) 3 Days Qty: 10 0RF No Action calcium citrate-vitamin D3 [Citracal + D Maximum] 315 mg-6.25 mcg (250 unit) tablet 1 tab PO DAILY estradiol [Estrace] 0.01 % (0.1 mg/gram) cream 1 appful vaginal DAILY Qty: 42.5 0RF Rx Instructions: twice weekly Primary Care Provider: Enmanuel Joseph Referrals: Enmanuel Joseph MD [Primary Care Provider, Internal Medicine] - 5-7 Days DentisOneil christie [STAFF PHYSICIAN, Dentistry] - 3-5 Days Print Language: Peruvian Disposition Disposition: Home, Self Care Discharge Date/Time: 11/17/24 22:49
[2024-11-17] MEDS: AMOXICILLIN 500 MG CAPSULE PO (22:40)
[2024-11-17 22:48] VITALS: BP 168/70; PULSE 70; RESP 18; TEMP 36.3; O2SAT 100
== END 2024-11-17 22:49 | disposition home or self-care (01) ==
PROVIDERS: Emergency Provider Emergency Medicine; PCP Internal Medicine; Visit Provider Emergency Medicine
DX: K02.9 Dental caries, unspecified (principal); R03.0 Elevated blood-pressure reading, without diagnosis of hypertension
CPT/HCPCS: 99282